=== PATIENT | female | born 2000 | race Caucasian/White ===

== ENCOUNTER 2019-11-19 10:56 | Emergency (ER) | payer SELFPAY ==
[~2019-11-19] VITALS: Ht 188 cm; Wt 98.6 kg
[2019-11-19 11:39] VITALS: BP 141/86; Ht 188 cm; Wt 98.6 kg
[2019-11-19] MEDS ORDERED: AMOXICILLIN875 MG PO (14:16)
== END 2019-11-19 15:00 | disposition home or self-care (01) ==
LOC: D.ER 10:56
DX: J02.0 Streptococcal pharyngitis (principal); Z72.0 Tobacco use

== ENCOUNTER 2020-07-26 14:43 | Emergency (ER) | payer SELFPAY ==
[~2020-07-26] VITALS: Ht 188 cm; Wt 104.5 kg
[~2020-07-26 14:43] MED LIST: AMOXICILLIN875 MG PO
[2020-07-26 15:18] VITALS: Ht 188 cm; Wt 104.5 kg
[2020-07-26 15:55] LABS: BASOPHILS 0.1 % (0-2); EOSINOPHILS 0.1 % (0-7); HEMATOCRIT 44.2 % (36.0-48.0); HEMOGLOBIN 14.9 g/dL (12-16); IMMATURE GRANULOCYTES 0.2 % (0-5); LYMPHOCYTES 15.7 % (15-50); MCH 28.8 pg (26.0-34.0); MCHC 33.7 g/dL (31.0-37.0); MCV 85.3 fL (80.0-100.0); MEAN PLATELET VOLUME 9.9 fL (7.4-10.4); MONOCYTES 4.7 % (2-11); NEUTROPHILS 79.2 % (40-80); PLATELET COUNT 200 10x3/uL (130-400); RBC 5.18 10x6/uL (4.00-5.40); RDW 13.1 % (11.5-14.5); WBC 13.5 10x3/uL (4.8-10.8)
[2020-07-26 16:10] LABS: ANION GAP 13.1 mmol/L (8-16); CALCIUM 9.1 mg/dL (8.5-10.1); CARBON DIOXIDE 25.6 mmol/L (21.0-32.0); HCG SERUM NEGATIVE (NEGATIVE); POTASSIUM - SERUM 3.7 mmol/L (3.5-5.1)
[2020-07-26 16:14] LABS: ALBUMIN 3.9 g/dL (3.4-5.0); BILIRUBIN - TOTAL 0.5 mg/dL (0.2-1.3)
--- NOTE | 2020-07-26 16:15 | NUR ---
DR DIALLO NOTIFIED AND REVIEWED PT'S BEHAVIOR AND ASSESSMENT. PT IS HIGH RISK. STATES SHE FEELS SUICIDAL AND HAS NO REASON TO LIVE. SITTER ORDERED AND AT BEDSIDE. RESOURCES GIVEN AND SHE VERBALIZES UNDERSTANDING.
[2020-07-26 16:16] LABS: BILIRUBIN NEGATIVE (NEGATIVE); KETONE NEGATIVE (NEGATIVE); NITRITE NEGATIVE (NEGATIVE); UROBILINOGEN NORMAL mg/dL (< 2)
--- NOTE | 2020-07-26 16:16 | NUR ---
DR DIALLO NOTIFIED AND REVIEWED PT'S BEHAVIOR AND ASSESSMENT. PT IS HIGH RISK. STATES SHE FEELS SUICIDAL AND HAS NO REASON FOR LIVING. SITTER ORDERED AND AT BEDSIDE. SAFETY PLAN INITIATED. RESOURCES GIVEN AND SHE VERBALIZES UNDERSTANDING.
[2020-07-26 16:21] LABS: UDS - AMPHET NEGATIVE QUAL (NEGATIVE); UDS - BARB NEGATIVE QUAL (NEGATIVE); UDS - BENZO POSITIVE QUAL (NEGATIVE); UDS - COCAINE NEGATIVE QUAL (NEGATIVE); UDS - OPIATE NEGATIVE QUAL (NEGATIVE); UDS - PCP NEGATIVE QUAL (NEGATIVE); UDS - THC POSITIVE QUAL (NEGATIVE)
[2020-07-27 01:31] VITALS: BP 126/77
== END 2020-07-27 02:40 ==
LOC: D.ER 14:43
PROVIDERS: Family Medicine
DX: R45.851 Suicidal ideations (principal); F32.9 Major depressive disorder, single episode, unspecified